=== PATIENT | female | born 1950 | race Caucasian/White ===

== ENCOUNTER → 2021-02-05 13:50 | Outpatient (CLI) | payer MEDICARE, SELFPAY ==
--- NOTE | ~2021-02-05 | MM_ITS ---
EXAMINATION: MM screening emilie BI w lillian HISTORY: Screening mammogram TECHNIQUE: Craniocaudal and mediolateral oblique 3-D tomosynthesis images were obtained and synthetic 2-D images were generated. CAD analysis was submitted and interpreted. COMPARISON: 01/09/2014, 06/16/2010, 07/13/2008, 03/29/2007 bilateral digital screening mammogram examina tions BREAST PARENCHYMAL COMPOSITION: There are scattered areas of fibroglandular density. FINDINGS: There is a biopsy marker in the right breast; history of prior benign left breast biopsy. There are 2 approximately 4-5 mm opacities at the posterior margin of the mid to upper left breast on MLO projection, not evident on prior examinations, possibly because of the depth of the opacities. D iagnostic left mammogram and left breast ultrasound examination are recommended. Otherwise there is no evidence of suspicious mass, calcification, or architectural distortion to sugg est malignancy in either breast. There has been no other suspicious interval change. IMPRESSION: 1. There are 2 approximately 4-5 mm opacity at the posterior aspect of the mid to upper left breast o n MLO view 2. Diagnostic left mammogram and left breast ultrasound examination are recommended. BI-RADS Category 0: Incomplete: Needs additional imaging evaluation. Reviewed, dictated and finalized at location A. IMPRESSION: 1. There are 2 approximately 4-5 mm opacity at the posterior aspect of the mid to upper left breast on MLO view 2. Diagnostic left mammogram and left breast ultrasound examination are recomme nded. BI-RADS Category 0: Incomplete: Needs additional imaging evaluation.
== END ==
PROVIDERS: PCP Family Medicine; Visit Provider Family Medicine
DX: Z12.31 Encounter for screening mammogram for malignant neoplasm of breast (principal); R92.8 Other abnormal and inconclusive findings on diagnostic imaging of breast
CPT/HCPCS: 77063; 77067

== ENCOUNTER → 2021-03-05 08:29 | Outpatient (CLI) | payer MEDICARE, SELFPAY ==
--- NOTE | ~2021-03-05 | MM_ITS ---
EXAMINATION: MM diagnostic emilie LT w lillian HISTORY: Left breast masses on screening mammogram TECHNIQUE: Additional 3-D tomosynthesis images of the left breast were performed and synthetic 2-D im ages were generated. CAD analysis was submitted and interpreted. COMPARISON: Prior mammograms dating back to 03/29/2007 FINDINGS: There are two small masses in the far posterior third of the outer left breast seen on the mediolateral oblique view. With spot compression, these have an appearance similar to the 2007 compar alvarado most consistent with lymph nodes. No suspicious mass, calcification, or architectural distortion are identified. IMPRESSION: 1. No mammographic evidence of malignancy. 2. Recommend routine screening mammography in one year. BI-RADS Category 2: Benign finding(s). Reviewed, dictated and finalized at location A. ING MACHINE TENDER
== END ==
PROVIDERS: PCP Family Medicine; Visit Provider Family Medicine
DX: R92.8 Other abnormal and inconclusive findings on diagnostic imaging of breast (principal)
CPT/HCPCS: 77061; 77065; G0279

== ENCOUNTER 2021-12-17 08:38 | Outpatient (CLI) | payer MEDICARE, SELFPAY ==
--- NOTE | 2021-12-17 08:43 | EST_ITS ---
Patient Info Name: Randi Fernandez Age: 71 years : 1950 Gender: Female Ht: 64 in Wt: 140 lbs BSA: 1.70 m2 HR: 78 bpm BP: 162 / 75 mmHg Heart Rhythm: Sinus Rhythm Technical Quality: Fair Exam Date: 12/17/2021 8:57 AM Exam Location: [facility] Stress Patient Status: Outpatient Admit Date: 12/17/2021 Staff Ordering Physician: Antelmo Yoon PA-C Furnishings Conservator: Nicole Berry RDCS Attending Provider: Antelmo Yoon PA-C Exercise Technologist: Ami Horn CT Exercise Physician: Jean-Pierre Hernandez DO Exam Type: CA stress echo Study Info Indications R07.9 - Chest pain, unspecified Treadmill exercise stress echocardiogram is performed. Summary 1. 1. Negative Davion exercise stress test for ischemic ST changes by ECG criteria. 2. 2. Poor functional capacity, achieving 4.7 METs of workload. 3. 3. Baseline hypertension. 4. 4. Rapid HR response to exercise. 5. 5. Appropriate HR recovery at 1 minute post exercise. 6. 6. Negative stress echocardiogram for ischemia by wall motion analysis. 7. 7. Patient informed of the above results. Stress Echo Findings Left Ventricle Appropriate increase in LV endocardial thickening with systole. Appropriate augmentation of contractility with systole. No wall motion abnormality. Left Ventricle Normal LV systolic function, no wall motion abnormality. Protocol: Davion Stress ECG Details Stage: REST Duration (min): 2 min : 54 sec Speed (mph): 0.0 Grade (%): 0 HR (bpm): 82 SBP (mmHg): 162 DBP (mmHg): 75 METS: --- Stage: REST Duration (min): 9 min : 45 sec Speed (mph): 0.0 Grade (%): 0 HR (bpm): 74 SBP (mmHg): 162 DBP (mmHg): 75 METS: --- Stage: STAGE 1 Duration (min): 1 min : 0 sec Speed (mph): 1.7 Grade (%): 10 HR (bpm): 111 SBP (mmHg): 162 DBP (mmHg): 75 METS: --- Stage: STAGE 1 Duration (min): 2 min : 0 sec Speed (mph): 1.7 Grade (%): 10 HR (bpm): 136 SBP (mmHg): 162 DBP (mmHg): 75 METS: --- Stage: STAGE 1 Duration (min): 3 min : 0 sec Speed (mph): 1.7 Grade (%): 10 HR (bpm): 151 SBP (mmHg): 196 DBP (mmHg): 70 METS: --- Stage: STAGE 2 Duration (min): 0 min : 6 sec Speed (mph): 0.0 Grade (%): 0 HR (bpm): 151 SBP (mmHg): 196 DBP (mmHg): 70 METS: --- Stage: RECOVERY Duration (min): 0 min : 53 sec Speed (mph): 0.0 Grade (%): 0 HR (bpm): 132 SBP (mmHg): 196 DBP (mmHg): 70 METS: --- Stage: RECOVERY Duration (min): 1 min : 53 sec Speed (mph): 0.0 Grade (%): 0 HR (bpm): 103 SBP (mmHg): 196 DBP (mmHg): 70 METS: --- Stage: RECOVERY Duration (min): 2 min : 53 sec Speed (mph): 0.0 Grade (%): 0 HR (bpm): 90 SBP (mmHg): 195 DBP (mmHg): 54 METS: --- Stage: RECOVERY Duration (min): 2 min : 58 sec Speed (mph): 0.0 Grade (%): 0 HR (bpm): 89 SBP (mmHg): 195 DBP (mmHg): 54 METS: --- Rest HR: 74 bpm Peak HR: 155 b
== END 2021-12-17 08:39 | disposition home or self-care (01) ==
PROVIDERS: PCP Emergency Medicine; Visit Provider Physician Assistant
DX: R07.9 Chest pain, unspecified (principal); R06.02 Shortness of breath
CPT/HCPCS: 93351

== ENCOUNTER → 2022-07-03 15:40 | Outpatient (CLI) | payer MEDICARE, SELFPAY ==
--- NOTE | ~2022-07-03 | MM_ITS ---
EXAMINATION: MM screening emilie BI w lillian HISTORY: Screening mammogram TECHNIQUE: Craniocaudal and mediolateral oblique 3-D tomosynthesis images were obtained and synthetic 2-D images were generated. CAD analysis was submitted and interpreted. COMPARISON: 03/05/2021 diagnostic left mammogram 02/05/2021, 01/09 2014 bilateral screening mammogram examinations BREAST PARENCHYMAL COMPOSITION: There are scattered areas of fibroglandular density. FINDINGS: There is a biopsy marker on the right; history of prior benign right breast biopsy in 2010. Stable mild fibroglandular asymmetry. Minimal benign calcification. There is no evidence of suspicious mass, calcification, or architectura l distortion to suggest malignancy in either breast. There has been no suspicious interval change. IMPRESSION: 1. No mammographic evidence of malignancy. 2. Recommend routine screening mammography in one year. BI-RADS Category 2: Benign finding(s). Reviewed, dictated and finalized at location A.
== END ==
PROVIDERS: PCP Emergency Medicine; Visit Provider Emergency Medicine
DX: Z12.31 Encounter for screening mammogram for malignant neoplasm of breast (principal)
CPT/HCPCS: 77063; 77067

== ENCOUNTER → 2023-03-15 07:38 | Outpatient (CLI) | payer MEDICARE, SELFPAY ==
--- NOTE | ~2023-03-15 | MR_ITS ---
EXAMINATION: MR brain/brain stem wo/w con DATE: 03/15/2023 08:22 INDICATION: Memory loss. New onset headache. TECHNIQUE: Magnetic resonance imaging (MRI) of the brain and brainstem was performed without and with 10 mL MultiHance intravenous contrast. COMPARISON: None. FINDINGS: There are scattered areas of nonspecific increased T2-weighted signal intensity in the cere bral white matter, which is within normal limits for the patient's age. There is no intracranial hemo rrhage, acute infarction, or abnormal intracranial mass lesion. The ventricles are normal in size. Th ere is mucosal thickening in the paranasal sinuses. The orbits are normal. The mastoid air cells are normal. IMPRESSION: 1. Normal aging brain. Reviewed, dictated and finalized at location A. Y FORMING MACHINE OPERATOR IMPRESSION: 1. Normal aging brain.
== END ==
PROVIDERS: PCP Family Medicine; Visit Provider Family Medicine
DX: R41.3 Other amnesia (principal); R51.9 Headache, unspecified
CPT/HCPCS: 70553; A9577

== ENCOUNTER 2024-03-28 11:26 | Outpatient (CLI) | payer MEDICARE, SELFPAY ==
--- NOTE | ~2024-03-28 | MM_ITS ---
EXAMINATION: MM screening emilie BI w lillian HISTORY: Screening TECHNIQUE: Craniocaudal and mediolateral oblique 3-D tomosynthesis images were obtained and synthetic 2-D images were generated. CAD analysis was submitted and interpreted. COMPARISON: Comparison to multiple prior studies sequentially, with oldest reviewed study dated 01/18. BREAST PARENCHYMAL COMPOSITION: Not dense: There are scattered areas of fibroglandular density. FINDINGS: There is no evidence of suspicious mass, calcification, or architectural distortion to sugg est malignancy in either breast. There has been no suspicious interval change. IMPRESSION: 1. No mammographic evidence of malignancy. 2. Recommend routine screening mammography in one year. BI-RADS Category 1: Negative Reviewed, dictated and finalized at location B. RANCE SERVICE REPRESENTATIVE
== END 2024-03-28 11:27 | disposition home or self-care (01) ==
LOC: MICIMG 11:29
PROVIDERS: PCP Family Medicine; Visit Provider Family Medicine
DX: Z12.31 Encounter for screening mammogram for malignant neoplasm of breast (principal)
CPT/HCPCS: 77063; 77067

== ENCOUNTER 2024-03-28 14:18 | Outpatient (CLI) | payer MEDICARE, SELFPAY ==
--- NOTE | ~2024-03-28 | DEXA_ITS ---
Bone Density Report Name: JOSE A MONTERO Age: 73 Sex: Female Ethnicity: White Date of : 1950 Indication: postmenopausal; screening for osteoporosis; height loss; Referring Provider: HOME LINN Study: Bone densitometry was performed. Exam Date: March 28, 2024 Accession number: [id number] Bone Density: Region BMD T-score Z-score Classification AP Spine(L1-L4) 0.848 -1.8 0.4 Osteopenia Femoral Neck (Left) 0.723 -1.1 0.8 Osteopenia Total Hip (Left) 0.893 -0.4 1.2 Normal Femoral Neck (Right) 0.668 -1.6 0.3 Osteopenia Total Hip (Right) 0.810 -1.1 0.5 Osteopenia Total Hip Mean 0.851 -0.8 0.9 Normal World Health Organization criteria for BMD impression classify patients as: Normal (T-score at or above -1.0), Osteopenia (T-score between -1.0 and -2.5), or Osteoporosis (T-score at or below -2.5). 10-year Fracture Risk(1): Major Osteoporotic Fracture 10% Hip Fracture 1.8% Reported Risk Factors: [place] (), Neck BMD=0.668, BMI=22.4 (1) FRAX(R) Version 3.08. Fracture probability calculated for an untreated patient. Fracture probability may be lower if the patient has received treatment. Clinical Information Provided by Patient: Patient maximum height was 64 Menopause Age: 69 No regular weight bearing exercise Does not regularly consume dairy products Onset of menses at age 19 Number of children 1 Impression: The patient has low bone mass, based on the Total Spine T-score. The patient has an estimated ten-year risk of hip fracture of 1.8% and an estimated ten-year risk of major fracture of 10%, based on the WHO FRAX algorithm. Discussion: BONE DENSITY IS LOW AT ONE OR MORE SKELETAL SITES. This patient's lowest T-score is low at one or more skeletal sites. It meets the World Health Organization's (WHO) criteria for ?low bone mass? (T-score between -1.0 and -2.5). The patient's 10-year risk of fracture as calculated by FRAX is less than the threshold where pharmacological therapy is recommended by the National Osteoporosis Foundation (NOF). However, all treatment decisions require clinical judgment and consideration of individual patient factors, including patient preferences, comorbidities, previous drug use, risk factors not captured in the FRAX model (e.g., frailty, falls, vitamin D deficiency, increased bone turnover, interval significant decline in bone density) and possible under or overestimation of fracture risk by FRAX. The patient should follow a healthful lifestyle (good nutrition with adequate calcium and vitamin D, and appropriate weight-bearing exercise). Follow-Up: Consider repeating this study in 2 to 3 years to reassess this patient's status, or sooner if there is some new clinical indication. Reported by: LU on 03/28/2024 3:00:00 PM. Reviewed, dictated and finalized at location A. GRACIE
== END 2024-03-28 14:19 | disposition home or self-care (01) ==
LOC: ANHIMG 14:19
PROVIDERS: PCP Family Medicine; Visit Provider Family Medicine
DX: Z78.0 Asymptomatic menopausal state (principal); M85.88 Other specified disorders of bone density and structure, other site; M85.852 Other specified disorders of bone density and structure, left thigh; M85.851 Other specified disorders of bone density and structure, right thigh
CPT/HCPCS: 77080

== ENCOUNTER 2025-04-04 08:45 | Outpatient (CLI) | payer MEDICARE, SELFPAY ==
--- NOTE | ~2025-04-04 | MM_ITS ---
EXAMINATION: MM screening [facility] BI w lillian HISTORY: Screening TECHNIQUE: Craniocaudal and mediolateral oblique 3-D tomosynthesis images were obtained and synthetic 2-D images were generated. CAD analysis was submitted and interpreted. COMPARISON: Comparison to multiple prior studies sequentially, with oldest reviewed study dated 01/09/2014. BREAST PARENCHYMAL COMPOSITION: Not Dense: There are scattered areas of fibroglandular density. FINDINGS: There is no evidence of suspicious mass, calcification, or architectural distortion to suggest malignancy in either breast. Scattered benign-appearing calcifications are present. IMPRESSION: 1. No mammographic evidence of malignancy. 2. Recommend routine screening mammography in one year. BI-RADS Category 2: Benign finding(s). Reviewed, dictated and finalized at location A. AL SUPERVISOR
== END 2025-04-04 08:46 | disposition home or self-care (01) ==
LOC: ANHFOHIMG 08:48
PROVIDERS: PCP Family Medicine; Visit Provider Family Medicine
DX: Z12.31 Encounter for screening mammogram for malignant neoplasm of breast (principal)
CPT/HCPCS: 77063; 77067